=== PATIENT | female | born 1975 ===

== ENCOUNTER 2024-03-20 17:18 | Outpatient (CLI) | payer MEDICAID ==
--- NOTE | 2024-03-21 15:59 | Ultrasound Report ---
PROCEDURE: Bladder INDICATIONS: URINARY RETENTION TECHNIQUE: Real-time scanning was performed of the bladder, with image documentation. COMPARISON: None FINDINGS: Bladder: Pre-void bladder volume is 328 mL. Post-void residual is 295 mL. Pre-void images demonstr ate no intraluminal masses or stones. On pre-void images, both ureteral jets are noted with color Do ppler interrogation. (Of note, ureteral jets may not be detectable in up to 25% of cases due to insu fficient differences in specific gravity between ureteral and bladder urine). Miscellaneous: No free pelvic fluid. IMPRESSION: Significantly elevated post void residual of 295 ml. Reviewed by: Willy Ceballos MD on 03/21/2024 3:57 PM PDT Approved by: Willy Ceballos MD on 03/21/2024 3:57 PM PDT Station ID: [id number]
== END 2024-03-20 17:19 | disposition home or self-care (01) ==
LOC: DI 17:18
PROVIDERS: ATTEND Nurse Practitioner Family
DX: R33.8 Other retention of urine (principal)